=== PATIENT | female | born 2000 ===

== ENCOUNTER 2021-07-09 19:01 | Observation (INO) | payer BC ==
[2021-07-09] MEDS ORDERED: PREN-96 PO (21:11)
== END 2021-07-09 21:27 | disposition home or self-care (01) ==
LOC: LDRP 19:01
PROVIDERS: ADMIT Obstetrics & Gynecology; ATTEND Obstetrics & Gynecology
DX: O99.283 Endocrine, nutritional and metabolic diseases complicating pregnancy, third trimester (principal); E86.0 Dehydration; O26.893 Other specified pregnancy related conditions, third trimester; R10.30 Lower abdominal pain, unspecified; Z3A.31 31 weeks gestation of pregnancy
CPT/HCPCS: 59025; 81002; G0378